=== PATIENT | female | born 1980 | race Two or more races ===

== ENCOUNTER 2022-03-17 06:51 | Day surgery (SDC) | payer OTHER ==
[~2022-03-17] VITALS: Ht 157.5 cm; Wt 64.4 kg
[~2022-03-17 06:51] MED LIST: ATACAND16 MG PO; CRESTOR5 MG PO; SYNTHROID112 MCG PO; TOPROL XL25 M1 PO
== END 2022-03-17 22:55 | disposition home or self-care (01) ==
LOC: CIR.AMB 06:51
PROVIDERS: ATTEND Surgery
DX: D05.02 Lobular carcinoma in situ of left breast (principal); D24.2 Benign neoplasm of left breast; N60.02 Solitary cyst of left breast; N60.12 Diffuse cystic mastopathy of left breast; Z88.2 Allergy status to sulfonamides; Z88.0 Allergy status to penicillin; I10 Essential (primary) hypertension
CPT/HCPCS: 19301; 19281; L8699